=== PATIENT | male | born 1975 | race Caucasian/White ===

== ENCOUNTER 2023-06-25 10:28 | Emergency (ER) | payer BC ==
[2023-06-25] MEDS ORDERED: Diphtheria,Pertussis(Acell),Tetanus Vaccine 0.5 ML Syringe IM ONE (10:36)
[2023-06-25] MEDS ORDERED: Lidocaine 1% 30 ML SDV INJECT ONE (10:36)
== END 2023-06-25 11:21 | disposition home or self-care (01) ==
LOC: DL.ED 10:28
DX: S60.453A Superficial foreign body of left middle finger, initial encounter (principal); Z88.0 Allergy status to penicillin; Z23 Encounter for immunization; W45.8XXA Other foreign body or object entering through skin, initial encounter
CPT/HCPCS: 64450; 73120-LT; 90471; 90715; 99282; 99283-25; J3490